=== PATIENT | male | born 1950 | race Caucasian/White ===

== ENCOUNTER 2016-10-12 09:10 | Outpatient (CLI) | payer BC | END 2016-10-12 20:56 | disposition home or self-care (01) | LOC: SDS 09:10 | PROVIDERS: ATTEND Surgery Vascular Surgery | DX: Z01.818 Encounter for other preprocedural examination (principal); I83.893 Varicose veins of bilateral lower extremities with other complications; R07.9 Chest pain, unspecified; M41.84 Other forms of scoliosis, thoracic region | CPT/HCPCS: 71020-TC ==

== ENCOUNTER 2022-09-09 07:12 | Day surgery (SDC) | payer OTHER, MEDICARE ==
[~2022-09-09] VITALS: Ht 188 cm; Wt 93.0 kg
[2022-09-09] MEDS ORDERED: ACETAMINOPHEN I.V. 1000 MG 100 ML IV ONE (09:01)
[2022-09-09] MEDS ORDERED: hydrALAZINE HCL 20 MG/ML VIAL IVP PRN (10:00)
[2022-09-09] MEDS ORDERED: METOCLOPRAMIDE HCL 10 MG/2 ML VIAL IVP PRN (10:00)
[2022-09-09] MEDS ORDERED: LR 1,000 ML IV SCH (10:00)
[2022-09-09] MEDS ORDERED: LABETALOL 100 MG/ 20ML VIAL IVP PRN (10:00)
[2022-09-09] MEDS ORDERED: HYDROmorphone 1 MG/ML INJ. CARTRIDGE IVP PRN ×2 (10:00)
[2022-09-09] MEDS ORDERED: MEPERIDINE HCL/PF 25 MG/ML DISP.SYRIN IVP PRN (10:00)
[2022-09-09] MEDS ORDERED: PROPOFOL 200MG/ 20ML VIAL (DIPRIVAN) IV ONE (12:12)
[2022-09-09] MEDS ORDERED: ROCURONIUM BROMIDE 10 MG/ML (ZEMURON) ONE (12:12)
[2022-09-09] MEDS ORDERED: DESFLURANE 15 MIN GAS INH ONE (12:12)
[2022-09-09] MEDS ORDERED: MIDAZOLAM HCL 5 MG/ML VIAL (VERSED) IV ONE (12:12)
[2022-09-09] MEDS ORDERED: NS IRRIG SOLN 1000 ML IR ONE (12:12)
[2022-09-09] MEDS ORDERED: fentaNYL CITRATE/PF 100 MCG/2 ML AMP ONE (12:12)
[2022-09-09] MEDS ORDERED: LIDOCAINE 2%, 20 ML MDV ONE (12:12)
[2022-09-09] MEDS ORDERED: ONDANSETRON HCL 4 MG/2 ML VIAL ONE (12:12)
[2022-09-09] MEDS ORDERED: DEXAMETHASONE SOD PHOSPHATE 4 MG/ML VIAL ONE (12:12)
[2022-09-09] MEDS ORDERED: LR 1,000 ML IV.SOLN IV ONE (12:12)
[2022-09-09] MEDS ORDERED: ALBUTEROL SULFATE 0.083% 2.5 MG/3 ML VIAL.NEB INH ONE ×2 (12:45→12:46)
[2022-09-09 15:30] VITALS: BP_SYST 130
== END 2022-09-09 15:30 | disposition home or self-care (01) ==
LOC: SDS 07:12 → SMU 07:13 → SDS 15:30
PROVIDERS: ATTEND Otolaryngology
DX: J34.2 Deviated nasal septum (principal); D38.5 Neoplasm of uncertain behavior of other respiratory organs; J01.40 Acute pansinusitis, unspecified; I10 Essential (primary) hypertension; G47.33 Obstructive sleep apnea (adult) (pediatric); Z99.89 Dependence on other enabling machines and devices; Z79.899 Other long term (current) drug therapy
CPT/HCPCS: 87070; 87075; 94640; 87101; 88305; 88311; 30140; 30520; 31255; 31298; 31256; J1100; J2001; J2250; J2405; J2704; J3010; J7613; J7120; C1726; J0131; 88304